=== PATIENT | male | born 1970 | race Hispanic/Latino ===

== ENCOUNTER 2022-08-30 15:16 | Emergency (ER) | payer OTHER ==
[~2022-08-30] VITALS: Ht 180.3 cm; Wt 95.3 kg
[2022-08-30] MEDS ORDERED: DEXAMETHASONE SOD PHOSPHATE 4 MG/ML 1ML VIAL IM SCH (15:30)
[2022-08-30] MEDS ORDERED: KETOROLAC 30MG VIAL (30MG/ML) IM SCH (15:30)
[2022-08-30 16:06] LABS: APPEARANCE,URINE CLEAR (CLEAR); BILIRUBIN,URINE NEGATIVE (NEGATIVE); COLOR,URINE YELLOW (YELLOW); GLUCOSE, URINE (UA) NEGATIVE (NEGATIVE); KETONES,URINE NEGATIVE (NEGATIVE); LEUKOCYTE ESTERASE ,URINE NEGATIVE Leu/uL (NEGATIVE); NITRATE,URINE NEGATIVE (NEGATIVE); PH,URINE 5.5 (5.0-8.0); PROTEIN,URINE 50 mg/dL (NEGATIVE)
[2022-08-30 16:12] LABS: BACTERIA,URINE RARE /HPF (None Seen); MUCUS,URINE MOD LPF (None Seen); SQUAMOUS EPITHELIAL CELL,UR RARE /HPF (0-2)
[2022-08-30 16:40] VITALS: BP 131/79
[2022-08-30] MEDS ORDERED: NAPR375T6 PO (16:55)
[2022-08-30] MEDS ORDERED: CIPR-279 PO (16:55)
== END 2022-08-30 17:07 | disposition home or self-care (01) ==
LOC: EDH 15:16
DX: N45.1 Epididymitis (principal)
CPT/HCPCS: 99284; 81001; 76870; 96372 ×2; J1100; J1885